=== PATIENT | male | born 1975 | race American Indian/Alaskan Native ===

== ENCOUNTER 2017-11-24 08:24 | Emergency (ER) | payer SELFPAY ==
[2017-11-24 08:49] VITALS: BP 98/56
--- NOTE | 2017-11-24 11:42 | XRay Report ---
AP ABDOMEN: HISTORY: Epigastric pain, history of ulcers. The abdominal gas pattern is unremarkable. No masses or organomegaly is identified and there is no gross evidence of free air or fluid. No significant soft tissue calcifications are noted. IMPRESSION: Unremarkable abdomen.
--- NOTE | 2017-11-24 12:13 | Emergency Department Report ---
ED Abdominal Pain HPI - General Chief Complaint: Abdominal Pain Stated Complaint: STOMACH/BACK PAIN Time Seen by Provider: 11/24/17 11:07 Source: patient Mode of arrival: Ambulatory Limitations: No Limitations - History of Present Illness Initial Comments: Patient is a 42-year-old [place] gentleman who is complaining of 3 days of epigastric discomfort. Patient states he has some mild nausea but no vomiting. Patient also does have some slight loose stools. Patient has a history of ulcers and states the pain feels somewhat similar. Patient denies any fevers chills cough cold congestion at this time. Patient states the pain is not worse with eating or laying flat. Patient states pain is nonradiating - Related Data Previous Rx's Medication Instructions Recorded Last Taken Type Dicyclomine [Bentyl] 10 mg PO QID #15 capsule 11/24/17 Unknown Rx Pantoprazole [Protonix TAB] 20 mg PO QDAY #30 tablet. 11/24/17 Unknown Rx traMADol [Ultram] 50 mg PO Q6HR PRN #10 tablet 11/24/17 Unknown Rx Allergies Allergy/AdvReac Type Severity Reaction Status Date / Time No Known Allergies Allergy Unverified 11/24/17 08:47 ED Review of Systems ROS: Stated complaint: STOMACH/BACK PAIN Other details as noted in HPI Comment: All other systems reviewed and negative ED Past Medical Hx - Past Medical History Additional medical history: ulcer - Surgical History Past Surgical History?: No - Social History Smoking Status: Never Smoker Substance Use Type: None - Medications Home Medications: Home Medications Medication Instructions Recorded Confirmed Last Taken Type Dicyclomine [Bentyl] 10 mg PO QID #15 capsule 11/24/17 Unknown Rx Pantoprazole [Protonix TAB] 20 mg PO QDAY #30 tablet. 11/24/17 Unknown Rx traMADol [Ultram] 50 mg PO Q6HR PRN #10 tablet 11/24/17 Unknown Rx ED Physical Exam - General Limitations: No Limitations General appearance: alert, in no apparent distress - Head Head exam: Present: atraumatic, normocephalic - Eye Eye exam: Present: normal appearance - ENT ENT exam: Present: mucous membranes moist - Neck Neck exam: Present: normal inspection - Respiratory Respiratory exam: Present: normal lung sounds bilaterally. Absent: respiratory distress, wheezes, rales - Cardiovascular Cardiovascular Exam: Present: regular rate, normal rhythm. Absent: systolic murmur, diastolic murmur, rubs, gallop - GI/Abdominal GI/Abdominal exam: Present: soft, normal bowel sounds. Absent: distended, tenderness, guarding, rebound - Rectal Rectal exam: Present: deferred - Extremities Exam Extremities exam: Present: normal inspection - Back Exam Back exam: Present: normal inspection - Neurological Exam Neurological exam: Present: alert, oriented X3 - Psychiatric Psychiatric exam: Present: normal affect, normal mood - Skin Skin exam: Present: warm, dry, intact, normal color. Absent: rash ED Course Vital Signs 11/24/17 08:47 Temperature 97.7 F Pulse Rate 54 L Respiratory 16 Rate Blood Pressure 98/56 O2 Sat by Pulse 98 Oximetry ED Medical Decision Making - Radiology Data KUB= NAP - Medical Decision Making Patient appears well. Patient most likely has some peptic ulcer disease causing his discomfort. Patient will be placed on Ms. for symptomatic relief and will be discharged home with follow-up with GI. Critical care attestation.: If time is entered above; I have spent that time in minutes in the direct care of this critically ill patient, excluding procedure time. ED Disposition Clinical Impression: PUD (peptic ulcer disease) Disposition: DC-01 TO HOME OR SELFCARE Is pt being admited?: No Does the pt Need Aspirin: No Condition: Stable Instructions: Peptic Ulcer (ED), Diet for Ulcers and Gastritis (ED) Prescriptions: Dicyclomine [Bentyl] 10 mg PO QID #15 capsule Pantoprazole [Protonix TAB] 20 mg PO QDAY #30 tablet. traMADol [Ultram] 50 mg PO Q6HR PRN #10 tablet PRN Reason: Pain Referrals: JOSE OG MD [Staff Physician] - 3-5 Days Time of Disposition: 12:13
== END 2017-11-24 12:22 | disposition home or self-care (01) ==
LOC: ED 08:24
DX: K27.9 Peptic ulcer, site unspecified, unspecified as acute or chronic, without hemorrhage or perforation (principal)
CPT/HCPCS: 74018; 99283